=== PATIENT | male | born 1965 | race Caucasian/White ===

== ENCOUNTER 2018-02-08 14:41 | Emergency (ER) | payer BC ==
[~2018-02-08] VITALS: Ht 188 cm; Wt 105.0 kg
[2018-02-08 14:44] VITALS: Ht 188 cm; Wt 105.0 kg
[2018-02-08] MEDS ORDERED: ASPIRIN EC81 M1 PO (14:46)
[2018-02-08] MEDS ORDERED: ZPAK PO (14:46)
[2018-02-08] MEDS ORDERED: LISINOPRIL5 MG PO (14:47)
[2018-02-08] MEDS ORDERED: TOPROL XL50 MG PO (14:47)
[2018-02-08] MEDS ORDERED: NORVASC10 MG PO (14:48)
[2018-02-08] MEDS ORDERED: HCTZ25 MG PO (14:48)
[2018-02-08 16:04] LABS: BASOPHILS 0.3 % (0-2); EOSINOPHILS 1.1 % (0-7); HEMATOCRIT 38.4 % (42.0-54.0); HEMOGLOBIN 13.7 g/dL (13.5-17.5); IMMATURE GRANULOCYTES 0.5 % (0-5); LYMPHOCYTES 9.7 % (15-50); MCH 30.5 pg (26.0-34.0); MCHC 35.7 g/dL (31.0-37.0); MCV 85.5 fL (80.0-100.0); MEAN PLATELET VOLUME 9.2 fL (7.4-10.4); MONOCYTES 7.4 % (2-11); RBC 4.49 10x6/uL (4.20-6.10); RDW 13.3 % (11.5-14.5); WBC 6.5 10x3/uL (4.8-10.8)
[2018-02-08 16:05] LABS: PLATELET COUNT 142 10x3/uL (130-400)
[2018-02-08 16:21] LABS: ALBUMIN 3.5 g/dL (3.4-5.0); ALKALINE PHOSPHATASE 68 U/L (46-116); ALT (SGPT) 27 U/L (10-68); BILIRUBIN - TOTAL 0.66 mg/dL (0.2-1.3); CALC OSMOLALITY 276 mosm/kg (275-300); CALCIUM 8.4 mg/dL (8.5-10.1); CARBON DIOXIDE 26.2 mmol/L (21.0-32.0); CHLORIDE - SERUM 104 mmol/L (98-107); CREATININE - SERUM 1.3 mg/dL (0.6-1.3); GLUCOSE 126 mg/dL (74-106); PROTEIN - SERUM 6.2 g/dL (6.4-8.2); SODIUM 137 mmol/L (136-145); UREA NITROGEN 14 mg/dL (7-18); eGFR NON AFRICAN AMERICAN 61 mL/min (90-120)
[2018-02-08 16:33] LABS: CKMB 0.7 U/L (0.0-3.6); CREATINE KINASE 69 UL (21-232); TROPONIN-I < 0.017 ng/mL (0.000-0.060)
[2018-02-08 17:02] LABS: APPEARANCE CLEAR (CLEAR); BILIRUBIN NEGATIVE (NEGATIVE); COLOR YELLOW (YELLOW); GLUCOSE NEGATIVE (NEGATIVE); KETONE NEGATIVE (NEGATIVE); NITRITE NEGATIVE (NEGATIVE); PROTEIN NEGATIVE (NEGATIVE); SPECIFIC GRAVITY 1.005 (1.005-1.020); UROBILINOGEN NORMAL (NORMAL)
[2018-02-08 18:48] LABS: CREATINE KINASE 71 UL (21-232); TROPONIN-I < 0.017 ng/mL (0.000-0.060)
[2018-02-08] MEDS ORDERED: CLEOCIN HCL300 MG PO (19:05)
[2018-02-08 20:26] VITALS: BP 126/87
== END 2018-02-08 20:26 | disposition home or self-care (01) ==
LOC: D.ER 14:41
PROVIDERS: Family Medicine
DX: R00.2 Palpitations (principal); T50.905A Adverse effect of unspecified drugs, medicaments and biological substances, initial encounter; Y92.019 Unspecified place in single-family (private) house as the place of occurrence of the external cause; R00.0 Tachycardia, unspecified; I10 Essential (primary) hypertension

== ENCOUNTER 2018-04-10 00:58 | Emergency (ER) | payer BC ==
[~2018-04-10] VITALS: Ht 188 cm; Wt 105.7 kg
[~2018-04-10 00:58] MED LIST: ASPIRIN EC81 M1 PO; CLEOCIN HCL300 MG PO; HCTZ25 MG PO; LISINOPRIL5 MG PO; NORVASC10 MG PO; TOPROL XL50 MG PO; ZPAK PO
[2018-04-10 01:02] VITALS: Ht 188 cm; Wt 105.7 kg
[2018-04-10] MEDS ORDERED: LIPITOR20 MG (01:04)
[2018-04-10] MEDS ORDERED: HYDROCHLOROTHIA25 MG (01:04)
[2018-04-10 01:27] LABS: BASOPHILS 0.6 % (0-2); EOSINOPHILS 4.3 % (0-7); HEMATOCRIT 37.9 % (42.0-54.0); HEMOGLOBIN 13.6 g/dL (13.5-17.5); IMMATURE GRANULOCYTES 0.6 % (0-5); LYMPHOCYTES 24.6 % (15-50); MCH 30.8 pg (26.0-34.0); MCHC 35.9 g/dL (31.0-37.0); MCV 85.7 fL (80.0-100.0); MEAN PLATELET VOLUME 9.9 fL (7.4-10.4); MONOCYTES 6.8 % (2-11); NEUTROPHILS 63.1 % (40-80); PLATELET COUNT 152 10x3/uL (130-400); RBC 4.42 10x6/uL (4.20-6.10); WBC 5.4 10x3/uL (4.8-10.8)
[2018-04-10 01:27] LABS: APPEARANCE CLEAR (CLEAR); BILIRUBIN NEGATIVE (NEGATIVE); COLOR YELLOW (YELLOW); GLUCOSE NEGATIVE (NEGATIVE); KETONE NEGATIVE (NEGATIVE); NITRITE NEGATIVE (NEGATIVE); PROTEIN NEGATIVE (NEGATIVE); UROBILINOGEN NORMAL (NORMAL)
[2018-04-10 01:39] LABS: ALBUMIN 3.4 g/dL (3.4-5.0); ANION GAP 9.8 mmol/L (8-16); BILIRUBIN - TOTAL 0.5 mg/dL (0.2-1.3); CALCIUM 7.9 mg/dL (8.5-10.1); CARBON DIOXIDE 26.8 mmol/L (21.0-32.0); CREATININE - SERUM 1.2 mg/dL (0.6-1.3); POTASSIUM - SERUM 3.6 mmol/L (3.5-5.1)
[2018-04-10] MEDS ORDERED: LEVAQUIN500 MG PO (02:33)
[2018-04-10 02:55] VITALS: BP 135/76
== END 2018-04-10 02:55 | disposition home or self-care (01) ==
LOC: D.ER 00:58
PROVIDERS: Family Medicine
DX: N41.9 Inflammatory disease of prostate, unspecified (principal); K59.00 Constipation, unspecified; R11.2 Nausea with vomiting, unspecified; R10.9 Unspecified abdominal pain; I10 Essential (primary) hypertension

== ENCOUNTER 2018-07-12 11:12 | Emergency (ER) | payer BC ==
[2018-04-10 01:02] VITALS: Ht 188 cm; Wt 105.0 kg
[~2018-07-12] VITALS: Ht 188 cm; Wt 105.0 kg
[~2018-07-12 11:12] MED LIST changes: +HYDROCHLOROTHIA25 MG; +LEVAQUIN500 MG PO; +LIPITOR20 MG
[2018-07-12] MEDS ORDERED: NORCO 10-325 TA1 TAB PO (11:21)
[2018-07-12] MEDS ORDERED: RANITIDINE HCL150 M1 PO (11:23)
[2018-07-12] MEDS ORDERED: OMEPRAZOLE40 MG PO (11:23)
[2018-07-12 11:47] LABS: BASOPHILS 0.3 % (0-2); EOSINOPHILS 2.2 % (0-7); HEMATOCRIT 44.1 % (42.0-54.0); HEMOGLOBIN 15.6 g/dL (13.5-17.5); IMMATURE GRANULOCYTES 0.3 % (0-5); LYMPHOCYTES 21.4 % (15-50); MCH 30.8 pg (26.0-34.0); MCHC 35.4 g/dL (31.0-37.0); MONOCYTES 5.7 % (2-11); NEUTROPHILS 70.1 % (40-80); RBC 5.07 10x6/uL (4.20-6.10); RDW 13.1 % (11.5-14.5); WBC 6.5 10x3/uL (4.8-10.8)
[2018-07-12 11:54] LABS: PLATELET COUNT 191 10x3/uL (130-400)
[2018-07-12 12:02] LABS: INR 1.04 (0.85-1.17); PROTIME 13.1 SECONDS (11.6-15.0)
[2018-07-12 12:03] LABS: APTT 31.1 SECONDS (22.8-39.4)
[2018-07-12 12:04] LABS: D-DIMER-QUANTITATIVE < 0.27 ug/mLFEU (0.20-0.54)
[2018-07-12 12:12] LABS: ALKALINE PHOSPHATASE 83 U/L (46-116); ALT (SGPT) 34 U/L (10-68); BILIRUBIN - TOTAL 0.85 mg/dL (0.2-1.3); CALC OSMOLALITY 279 mosm/kg (275-300); CALCIUM 8.6 mg/dL (8.5-10.1); CARBON DIOXIDE 25.8 mmol/L (21.0-32.0); CHLORIDE - SERUM 102 mmol/L (98-107); CREATININE - SERUM 1.2 mg/dL (0.6-1.3); GLUCOSE 116 mg/dL (74-106); POTASSIUM - SERUM 4.2 mmol/L (3.5-5.1); PROTEIN - SERUM 7.5 g/dL (6.4-8.2); SODIUM 139 mmol/L (136-145); UREA NITROGEN 14 mg/dL (7-18); eGFR NON AFRICAN AMERICAN 67 mL/min (90-120)
[2018-07-12 12:21] LABS: CKMB 0.7 U/L (0.0-3.6); LIPASE 166 U/L (73-393); TROPONIN-I < 0.017 ng/mL (0.000-0.060)
[2018-07-12 18:17] VITALS: BP 108/76
== END 2018-07-12 17:45 | disposition home or self-care (01) ==
LOC: D.ER 11:12
PROVIDERS: Family Medicine
DX: R07.89 Other chest pain (principal); F41.9 Anxiety disorder, unspecified; I10 Essential (primary) hypertension